=== PATIENT | female | born 1990 | race Caucasian/White ===

== ENCOUNTER → 2017-10-03 | Outpatient (CLI) | payer OTHER | LOC: FIMAGING 10:39 → EDSTATUS 10:43 | PROVIDERS: ATTEND Neurological Surgery | DX: M43.06 Spondylolysis, lumbar region (principal); Z97.5 Presence of (intrauterine) contraceptive device ==

== ENCOUNTER → 2018-07-15 | Outpatient (CLI) | payer OTHER | LOC: FIMAGING 13:53 | PROVIDERS: ATTEND Family Medicine | DX: R10.2 Pelvic and perineal pain (principal); Z97.5 Presence of (intrauterine) contraceptive device ==